=== PATIENT | female | born 1955 | race Caucasian/White ===

== ENCOUNTER → 2019-09-02 | Outpatient (CLI) | payer BC ==
[2019-09-02 14:39] VITALS: BP 158/79; PULSE 85; RESP 16; TEMP 98
--- NOTE | 2019-09-02 14:52 | P.GSHP ---
History of Present Illness H&P Date: 09/02/19 Chief Complaint: abnormal bilateral breast ultrasound Annie is a 64-year-old white female who presents for breast evaluation. She had bilateral mammogram performed in April 2019. This revealed bilateral dense breasts and bilateral ultrasound was recommended. Bilateral ultrasound she was noted to have lesions in both breasts for which core biopsy was recommended. There was a 1.5 cm lesion in the right breast and a 0.6 cm lesion in the left breast. These were considered BIRADS 4 and bilateral ultrasound core biopsy recommended. The patient herself does not feel any lumps masses or nodules in her breast. She has had no history of recent trauma or infection the breast. She had a right breast aspiration of a cyst in April 2016 and this was consistent with fibrocystic breast changes. Family History: dad: colon cancer sister: endometrial cancer maternal grandmother: stomach cancer Hormonal history: Menarche: 16 adopted 7, breast fed: yes, age at first : 26 menopasue: 44 BCP: 1 year Hormones: progesterone for three months, thickening of endometrial wall Surgical History: 1. 2. root canal Medical History: endometrial thickening HTN obesity Social History: amoke: none alcohol: none drugs: none - Constitutional Constitutional: Denies chills, Denies fever - EENT Eyes: denies blurred vision, denies pain Ears: left: decreased hearing, deny: tinnitus Ears, nose, mouth and throat: Denies headache, Denies sore throat - Breasts Breasts: bilateral: as per HPI - Cardiovascular Cardiovascular: Reports high blood pressure - Respiratory Respiratory: Denies cough, Denies 7 - Gastrointestinal Gastrointestinal: Denies abdominal pain, Denies diarrhea, Denies nausea, Denies vomiting - Genitourinary (Female) Genitourinary: Denies dysuria, Denies hematuria - Menstruation Comment: vaginal spotting and patient was noted have endometrial thickening was recently started on progesterone Menstruation: Reports postmenopausal - Musculoskeletal Musculoskeletal: Denies myalgias - Integumentary Integumentary: Denies pruritus, Denies rash - Neurological Neurological: Denies numbness, Denies weakness - Psychiatric Psychiatric: Denies anxiety, Denies depression - Endocrine Endocrine: Denies fatigue, Denies weight change - Hematologic/Lymphatic Comment: none - Allergic/Immunologic Allergic/Immunologic: Reports as per HPI Medications and Allergies Home Medications Medication Instructions Recorded Confirmed Type Cholecalciferol [Vitamin D3 (25 2,000 unit PO DAILY 08/26/19 09/02/19 History Mcg = 1000 Iu)] L.acidoph,Paracasei, B.lactis 1 each PO DAILY 08/26/19 09/02/19 History [Probiotic] Losartan/Hydrochlorothiazide 1 tab PO HS 08/26/19 09/02/19 History [Losartan-Hctz 100-25 mg Tab] Progesterone, Micronized 10 mg PO DAILY 08/26/19 09/02/19 History [Progesterone] Red Yeast Rice 1,200 mg PO DAILY 08/26/19 09/02/19 History Allergies Allergy/AdvReac Type Severity Reaction Status Date / Time No Known Allergies Allergy Verified 09/02/19 14:23 Surgical - Exam BMI 40.5 - General no distress, obese - Eyes normal ocular movement, no icteric - ENT no hearing loss, no congestion - Neck no masses, trachea midline - Respiratory normal expansion, normal respiratory effort, clear to auscultation - Cardiovascular Rhythm: regular Heart Sounds: normal: S1, S2 - Abdomen Abdomen: soft, non tender, no guarding, no rigid, no rebound - Integumentary normal turgor - Neurologic no disoriented, no combative - Musculoskeletal normal gait, normal posture - Psychiatric oriented to time, oriented to person, oriented to place, speech is normal, memory intact Breast exam: BRA 40B inspection: No skin lesions of concern, no nipple inversion Palpation: Right breast: Multi-positional exam fibrocystic breast changes no dominant masses or nodules of concern Right axilla: No adenopathy of concern Left breast: Multiple positional exam fibrocystic changes, no dominant masses or nodules of concern Left axilla: No adenopathy of concern Results Mammogram and ultrasound report reviewed Assessment and Plan Assessment: Impression: 1. Radiographic abnormality bilateral breast 2. Hypertension 3. BMI 40.5 4. Wall thickening/spotting/patient on progesterone Plan: 1. Bilateral ultrasound-guided core biopsies 2. Patient presently on Premarin we'll stop this until results of core biopsies come back 3. Follow with medical doctor regarding hypertension and elevated BMI CC: DR. Griffin., Dr. Green We have discussed ultrasound guided core biopsy. Risks and benefits including bleeding and infection or inability to adequately sampled the area of concern. The patient understands and wishes to proceed. Additionally we've discussed the fact that she is on Premarin and until we get the results of the core biopsy back and would recommend stopping the Premarin. encounter 40 minutes, > 50% of time in planning and counselling Time with Patient: Greater than 30
== END | disposition home or self-care (01) ==
LOC: WWCWWP 13:54
PROVIDERS: ATTEND Surgery
DX: Z53.9 Procedure and treatment not carried out, unspecified reason (principal)

== ENCOUNTER → 2019-09-10 | Day surgery (SDC) | payer BC ==
[2019-09-10 08:24] VITALS: RESP 16
[2019-09-10 10:00] VITALS: BP 155/79; PULSE 73; TEMP 97.6
--- NOTE | 2019-09-10 10:53 | USB ---
EXAMINATION TYPE: US biopsy breast VAD LT DATE OF EXAM: 09/10/2019 CLINICAL HISTORY: R92.8 ABN MAMMOGRAM. TECHNIQUE: Ultrasound guided core biopsy of left 7:00 breast. COMPARISON: NONE FINDINGS: The procedure of ultrasound guided core biopsy was explained to the patient. Benefits, alternatives, and risks were discussed. An informed consent was then obtained. The patient was placed in supine positioning for imaging and for the procedure. The overlying skin was prepped and draped in usual sterile fashion. Lidocaine buffered with bicarbonate was used as anesthetic into the skin and subcutaneous tissue up to area of concern in the left 7:00 breast. Under ultrasound guidance, a 12-gauge vacuum assisted biopsy gun device was used to obtain one core sample was obtained and then the lesion was no longer visualized. Following this, a biopsy clip was left in lesion. The patient tolerated the procedure well without any immediate complication. The patient was kept in the radiology department for short stay after the procedure and then discharged home in stable condition. IMPRESSION: Successful, uncomplicated ultrasound guided core biopsy of area of concern in the left 7:00 breast, full pathology results to follow. Pathology Results: Benign LEFT BREAST, SEVEN OCLOCK, ULTRASOUND GUIDED CORE BIOPSY: Fibrocystic changes including cyst with fibrosis, apocrine metaplasia, adenosis and microcalcifications. Recommendation Follow up ultasound of the left breast in 6 months. GIOVANNYD
--- NOTE | 2019-09-10 10:55 | USB ---
EXAMINATION TYPE: US breast aspiration single RT DATE OF EXAM: 09/10/2019 COMPARISON: NONE CLINICAL HISTORY: R92.8 ABN MAMMOGRAM. Informed consent was obtained and all the patient's questions were answered. Cystic lesion at the right 1:00 position was localized sonographically. The standard sterile technique was utilized as well as appropriate local anesthesia with 1% lidocaine. 18-gauge needle was introduced into the lesion and a 0.5 mL of thick white aspirate was obtained. Clip marker was deployed at the site of aspiration. Aspirate was sent to cytology for evaluation. The patient left the department in stable condition. IMPRESSION: Successful cyst aspiration right 1:00 position. Cytology pending. Pathology Results: Benign RIGHT BREAST, ONE O'CLOCK, ASPIRATE: Clusters of bland apocrine lining cells and background degenerated cellular material, consistent with a benign apocrine cyst/cyst contents. Recommendation Follow up ultrasound of the right breast in 6 months. PETER
== END ==
LOC: RADUSWWP 08:00
PROVIDERS: ATTEND Surgery
DX: N60.01 Solitary cyst of right breast (principal); N60.82 Other benign mammary dysplasias of left breast; N60.12 Diffuse cystic mastopathy of left breast; R92.8 Other abnormal and inconclusive findings on diagnostic imaging of breast
CPT/HCPCS: 88108; 88305; 19000; 19083; A4648; J2001; 76942

== ENCOUNTER → 2020-03-18 | Outpatient (CLI) | payer BC ==
--- NOTE | 2020-03-22 10:00 | MM ---
Reason for exam: follow-up at short interval from prior study. Last mammogram was performed 11 months ago. History: Patient is postmenopausal. Benign US breast aspiration single RT of the right breast, September 10, 2019. Benign US biopsy breast VAD LT of the left breast, September 10, 2019. Benign US breast aspiration single RT of the right breast, April 24, 2016. Took estrogen for 6 months beginning at age 44. Took progesterone for 6 months beginning at age 44. Took other hormone for 3 months beginning at age 65. Physical Findings: Nurse did not find any significant physical abnormalities on exam. MG Diagnostic Mammo w CAD JACKIE Bilateral CC and MLO view(s) were taken. Prior study comparison: April 28, 2019, mammogram. Finding: There is a typically benign 7 mm equal density (isodense), circumscribed round mass located 9 cm from the nipple in the left breast. Previous mammotome biopsy in the right and left breast. No significant changes in finding since April 28, 2019. These results were verbally communicated with the patient and result sheet given to the patient on 03/18/20. ASSESSMENT: Benign, BI-RAD 2 RECOMMENDATION: Routine screening mammogram of both breasts in 1 year.
--- NOTE | 2020-03-22 10:02 | USB ---
Reason for exam: follow-up at short interval from prior study. History: Patient is postmenopausal. Benign US breast aspiration single RT of the right breast, September 10, 2019. Benign US biopsy breast VAD LT of the left breast, September 10, 2019. Benign US breast aspiration single RT of the right breast, April 24, 2016. Took estrogen for 6 months beginning at age 44. Took progesterone for 6 months beginning at age 44. Took other hormone for 3 months beginning at age 65. US Breast Limited BILAT Right limited breast ultrasound including focal area of concern, retroareolar and axilla demonstrates a 0.4 x 0.4 x 0.2cm oval, cystic lesion at 12 o'clock, a 0.5 x 0.4 x 0.4cm oval, cystic lesion at 2 o'clock and a 1.3 x 0.7 x 0.8cm oval, lymph nodes at the axilla. Left limited breast ultrasound including focal area of concern, retroareolar and axilla demonstrates a 0.3 x 0.3 x 0.3cm oval, cystic lesion at 6 o'clock, a 0.6 x 0.7 x 0.4cm oval, cystic lesion at 7 o'clock and a 0.4 x 0.4 x 0.3cm oval, cystic lesion at 9 o'clock. These results were verbally communicated with the patient and result sheet given to the patient on 03/18/20. ASSESSMENT: Benign, BI-RAD 2 RECOMMENDATION: Routine screening mammogram of both breasts in 1 year.
== END | disposition home or self-care (01) ==
LOC: RADMAMWWP 14:19
PROVIDERS: ATTEND Surgery
DX: R92.8 Other abnormal and inconclusive findings on diagnostic imaging of breast (principal)
CPT/HCPCS: 77066

== ENCOUNTER 2020-04-23 06:55 | Day surgery (SDC) | payer BC ==
[2020-04-22 08:48] VITALS: BMI 40.5
[~2020-04-23 06:55] MED LIST: LACTATED RINGERS 1,000 ML IV SCH; LIDOCAINE 1% (10MG/ML) FOR IV START INTRADERMA PRN
[2020-04-23 07:25] VITALS: RESP 16; TEMP 97.5
[2020-04-23 07:25] LABS: Glucose,Whole Blood 109 mg/dL (75-99)
[2020-04-23] MEDS ORDERED: PROPOFOL 10 MG/ML 20 ML VIAL IV ONE (07:32)
--- NOTE | 2020-04-23 07:48 | P.PCN ---
Date of Procedure: 04/23/20 Procedure(s) Performed: BRIEF HISTORY: Patient is a 65-year-old pleasant female scheduled for an elective colonoscopy as a part of evaluation of prior history of colon polyps and family history of colon cancer. Father was diagnosed with colon cancer at age 70. PROCEDURE PERFORMED: Colonoscopy with biopsy and Endo Clip placement. PREOPERATIVE DIAGNOSIS: History of colon polyps/family history of colon cancer. IV sedation per Anesthesia. PROCEDURE: After informed consent was obtained, the patient, was brought into the endoscopy unit. IV sedation was administered by Anesthesia under continuous monitoring. Digital rectal examination was normal. Initially the Olympus CF-160 flexible video colonoscope was then inserted in the rectum, gradually advanced into the cecum without any difficulty. Careful examination was performed as the scope was gradually being withdrawn. Ileocecal valve and the appendiceal orifice were visualized and appeared normal. Prep was excellent. Mucosa of the cecum, ascending colon, transverse colon, appeared normal. In the descending colon there was a 3 mm polyp that was removed by biopsy. Immediately there was brisk bleeding identified at the site of biopsy and hence an Endo Clip was placed and adequate hemostasis was achieved. Rest of the descending colon, sigmoid colon, and rectum appeared normal. Scattered left sided diverticulosis seen. Retroflexion was performed in the rectum and no lesions were seen. The patient tolerated the procedure well. IMPRESSION: 3 mm polyp in the descending colon status post biopsy followed by bleeding status post Endo Clip placement for hemostasis Scattered sigmoid diverticulosis RECOMMENDATIONS: Findings of this examination were discussed with the patient as well as a family.. She was advised to follow with the biopsy results. She was advised to have a repeat colonoscopy in 5 years because of the family family history of colon cancer
[2020-04-23] MEDS ORDERED: IV FLUID CONTINUATION 800 ML IV ONE (07:49)
[2020-04-23 08:06] VITALS: BP 168/75; PULSE 85
== END 2020-04-23 08:46 | disposition home or self-care (01) ==
LOC: ORWHC2ENDO 06:55
PROVIDERS: ATTEND Internal Medicine Gastroenterology
DX: Z12.11 Encounter for screening for malignant neoplasm of colon (principal); D12.4 Benign neoplasm of descending colon; K57.30 Diverticulosis of large intestine without perforation or abscess without bleeding; Z80.0 Family history of malignant neoplasm of digestive organs; E11.9 Type 2 diabetes mellitus without complications; Z86.010 Personal history of colon polyps; Z98.891 History of uterine scar from previous surgery; I10 Essential (primary) hypertension; Z98.890 Other specified postprocedural states; Z79.84 Long term (current) use of oral hypoglycemic drugs; Z79.899 Other long term (current) drug therapy
CPT/HCPCS: 88305; 45380; J2704; 45382

== ENCOUNTER → 2021-05-26 | Outpatient (CLI) | payer MEDICARE ==
--- NOTE | 2021-05-27 11:00 | MM ---
Reason for exam: screening (asymptomatic). Last mammogram was performed 1 year and 2 months ago. History: Patient is postmenopausal. Benign US breast aspiration single RT of the right breast, September 10, 2019. Benign US biopsy breast VAD LT of the left breast, September 10, 2019. Benign US breast aspiration single RT of the right breast, April 24, 2016. Took estrogen for 6 months beginning at age 44. Took progesterone for 6 months beginning at age 44. Took other hormone for 3 months beginning at age 65. Physical Findings: A clinical breast exam by your physician is recommended on an annual basis and results should be correlated with mammographic findings. MG 3D Screening Mammo W/Cad Bilateral CC and MLO view(s) were taken. Prior study comparison: March 18, 2020, bilateral MG diagnostic mammo w CAD JACKIE. April 28, 2019, mammogram. The breast tissue is heterogeneously dense. This may lower the sensitivity of mammography. Finding #1: There is a 7 mm obscured round mass in the middle posterior position of the right breast. There is a 7 mm mass in the middle central position of the left breast 4cm from the nipple. Finding #2: There are typically benign round calcifications in both breasts. Previous mammotome biopsy in the right and left breast. ASSESSMENT: Incomplete: need additional imaging evaluation, BI-RAD 0 RECOMMENDATION: Ultrasound of both breasts. [facility] will attempt to contact patient to return for ultrasound.
== END | disposition home or self-care (01) ==
LOC: RADMAMWWP 09:40
PROVIDERS: ATTEND Family Medicine
DX: Z12.31 Encounter for screening mammogram for malignant neoplasm of breast (principal); Z78.0 Asymptomatic menopausal state
CPT/HCPCS: 77063; 77067

== ENCOUNTER → 2021-06-01 | Outpatient (CLI) | payer MEDICARE ==
--- NOTE | 2021-06-01 10:44 | USB ---
Reason for exam: additional evaluation requested from abnormal screening. History: Patient is postmenopausal. Benign US breast aspiration single RT of the right breast, September 10, 2019. Benign US biopsy breast VAD LT of the left breast, September 10, 2019. Benign US breast aspiration single RT of the right breast, April 24, 2016. Took estrogen for 6 months beginning at age 44. Took progesterone for 6 months beginning at age 44. Took other hormone for 3 months beginning at age 65. Physical Findings: Nurse did not find any significant physical abnormalities on exam. US Breast Workup Limited JACKIE Right limited breast ultrasound including focal area of concern, retroareolar and axilla demonstrates a 0.5 x 0.8 x 0.3cm oval, mixed lesion at 1 o'clock, 6 month follow up recommended, a 0.4 x 0.4 x 0.3cm oval, mixed lesion at 1 o'clock, 6 month follow up recommended, a 0.3 x 0.5 x 0.2cm oval, mixed lesion at 4 o'clock, 6 month follow up recommended, a 0.6 x 0.4 x 0.3cm oval, cystic lesion at 6 o'clock, a 0.8 x 0.5 x 0.4cm oval, cystic cluster at 6 o'clock, ducts at the posterior nipple and a 1.4 x 0.9 x 1.3cm axilla lymph node. Left limited breast ultrasound including focal area of concern, retroareolar and axilla demonstrates a 0.4 x 0.5 x 0.5cm hypoechoic lesion at 1 o'clock, 6 month follow up recommended, a 0.7 x 0.6 x 0.5cm oval, cystic lesion at 2 o'clock, a 0.3 x 0.4 x 0.3cm oval, mixed lesion at 2 o'clock, a 0.8 x 0.9 x 0.3cm oval, mixed lesion at 2 o'clock, 6 month follow up recommended, a 0.7 x 0.9 x 0.5cm oval, mixed lesion at 3 o'clock, 6 month follow up recommended, a 0.6 x 0.6 x 0.6cm oval, cystic lesion at 4 o'clock and a 1.9 x 1.2 x 0.6cm axilla lymph node. Scanned right medial breast and left lateral breast. These results were verbally communicated with the patient and result sheet given to the patient on 06/01/21. ASSESSMENT: Probably benign, BI-RAD 3 RECOMMENDATION: Ultrasound of both breasts in 6 months.
== END | disposition home or self-care (01) ==
LOC: RADUSWWP 08:16
PROVIDERS: ATTEND Family Medicine
DX: N64.89 Other specified disorders of breast (principal)

== ENCOUNTER → 2022-08-29 | Outpatient (CLI) | payer MEDICARE ==
--- NOTE | 2022-08-29 10:50 | MM ---
Reason for Exam: Follow-up at short interval from prior study. Last mammogram was performed 1 year(s) and 3 month(s) ago. Patient History: Menarche at age 16. First Full-Term at age 26. Postmenopausal. Patient has history of breast feeding. Estrogen for 6 months from age 44 until age 44. Progesterone for 6 months from age 44 until age 44. 09/10/2019, Benign Core Biopsy on the left side. 09/10/2019, Benign Cyst Aspiration on the right side. 04/24/2016, Benign Cyst Aspiration on the right side. Risk Values: Radha 5 year model risk: 2.0%. NCI Lifetime model risk: 7.2%. Prior Study Comparison: 04/28/2019 Screening Mammogram, [facility]. 03/18/2020 Bilateral Diagnostic Mammogram, [facility]. 03/18/2020 Bilateral Diagnostic Ultrasound, [facility]. 05/26/2021 Bilateral Screening Mammogram, [facility]. 06/01/2021 Bilateral Diagnostic Ultrasound, [facility]. Tissue Density: The breast tissue is heterogeneously dense. This may lower the sensitivity of mammography. Findings: Analyzed By CAD. Pattern appears symmetrical and stable. No significant interval change is evident. Benign-appearing calcifications are scattered bilaterally. Bilateral core markers are evident. No significant interval change. No suspicious spiculated or lobular masses, cluster microcalcifications, architectural distortion, or other secondary signs of malignancy are radiographically apparent. Overall Assessment: Benign, BI-RAD 2 Management: Diagnostic Breast Ultrasound of both breasts. A clinical breast exam by your physician is recommended on an annual basis and results should be correlated with mammographic findings. This exam should not preclude additional follow-up of suspicious palpable abnormalities. Results were given to the patient verbally at the time of exam. Electronically signed and approved by: Rasta Garcia D.O. Radiologis
--- NOTE | 2022-08-29 11:06 | USB ---
Reason for Exam: Additional evaluation requested from prior study. Patient History: Menarche at age 16. First Full-Term at age 26. Postmenopausal. Patient has history of breast feeding. Estrogen for 6 months from age 44 until age 44. Progesterone for 6 months from age 44 until age 44. 09/10/2019, Benign Core Biopsy on the left side. 09/10/2019, Benign Cyst Aspiration on the right side. 04/24/2016, Benign Cyst Aspiration on the right side. Risk Values: Radha 5 year model risk: 2.0%. NCI Lifetime model risk: 7.2%. Technique: Method: Targeted. Prior Study Comparison: 04/28/2019 Screening Mammogram, Unknown. 03/18/2020 Bilateral Diagnostic Mammogram, [facility]. 05/26/2021 Bilateral Screening Mammogram, [facility]. Findings: The lateral section of the breast of the left breast, the medial section of the breast of the right breast, the axilla of both breasts and the retroareolar of both breasts were scanned. There are multiple scattered cystlike structures to the bilateral breasts. Majority is appears simple. Slightly more complex cyst with some minimal internal debris with good through transmission may be at 3:00 left breast position. Stable solid subcentimeter lesions within the left breast. No suspicious shadowing structures or solid lesions are evident. Overall Assessment: Benign, BI-RAD 2 Management: Screening Mammogram of both breasts in 1 year. A clinical breast exam by your physician is recommended on an annual basis and results should be correlated with mammographic findings. This exam should not preclude additional follow-up of suspicious palpable abnormalities. Results were given to the patient verbally at the time of exam. Electronically signed and approved by: Rasta Garcia D.O. Radiologis
--- NOTE | 2022-08-29 13:20 | BD ---
EXAMINATION TYPE: Axial Bone Density DATE OF EXAM: 08/29/2022 CLINICAL HISTORY: 67 year old Female. ICD-10 CODE: Z78.0 Height: 64 Weight: 246.6 FRAX RISK QUESTIONS: Alcohol (3 or more units per day): no Family History (Parent hip fracture): no Glucocorticoids (More than 3mos): no (Ex: prednisone, prednisolone, methylprednisolone, dexamethasone, and hydrocortisone). History of Fracture in Adulthood: no Secondary Osteoporosis: 1. Type 1 Diabetes: no 2. Hyperthyroidism: no 3. Menopause before 45: yes 4. Malnutrition: no 5. Chronic liver disease: no Rheumatoid Arthritis: no Current Tobacco Use: no RISK FACTORS HISTORY OF: Surgery to Spine/Hip(right/left)/Wrist (right/left): no Family History of Osteoporosis: no Active: no Diet low in dairy products/other sources of calcium: no Postmenopausal woman: yes Lost more than 2 inches in height since high school: no MEDICATIONS: Jardiance Additional History: EXAM MEASUREMENTS: Bone mineral densitometry was performed using the [employer] System. Bone mineral density as measured about the Lumbar spine is: ----- L1-L4(G/cm2): 1.279 T Score Values are as follows: ----- L1: 0.2 ----- L2: -0.3 ----- L3: 1.3 ----- L4: 1.7 ----- L1-L4: 0.8 Z Score Values are as follows: ----- L1: 0.7 ----- L2: 0.2 ----- L3: 1.8 ----- L4: 2.1 ----- L1-L4: 1.3 Bone mineral density : baseline Bone mineral density about the R hip (g/cm2): 1.197 Bone mineral density about the L hip (g/cm2): 1.246 T Score values are as follows: -----R Neck: -0.1 -----L Neck: 0.6 -----R Total: 1.5 -----L Total: 1.9 Z Score values are as follows: -----R Neck: 0.7 -----L Neck: 1.4 -----R Total: 1.9 -----L Total: 2.3 Bone mineral density : baseline FRAX%s: The graph provided illustrates a 6.1% chance for a major osteoporotic fx and a 0.2% chance fo r the hips probability for fx in 10 years time. IMPRESSION: Normal (Values between +1 and -1 indicate normal bone mass). Consider repeating this study in 5 year s or sooner if there is some new clinical indication. NOTE: T-SCORE=SD OF THE YOUNG ADULT MEAN.
== END | disposition home or self-care (01) ==
LOC: RADBDWWP 09:12
PROVIDERS: ATTEND Family Medicine
DX: R92.8 Other abnormal and inconclusive findings on diagnostic imaging of breast (principal); N60.01 Solitary cyst of right breast; N60.02 Solitary cyst of left breast; Z78.0 Asymptomatic menopausal state
CPT/HCPCS: 77080; 77066; 76642; G0279; 77062

== ENCOUNTER → 2023-08-31 | Outpatient (CLI) | payer MEDICARE ==
--- NOTE | 2023-09-05 09:50 | MM ---
Reason for Exam: Screening (asymptomatic). Last screening mammogram was performed 12 month(s) ago. Patient History: Menarche at age 16. First Full-Term at age 26. Postmenopausal. Patient has history of breast feeding. Estrogen for 6 months from age 44 until age 44. Progesterone for 6 months from age 44 until age 44. 09/10/2019, Benign Core Biopsy on the left side. 09/10/2019, Benign Cyst Aspiration on the right side. 04/24/2016, Benign Cyst Aspiration on the right side. Risk Values: Radha 5 year model risk: 2.0%. NCI Lifetime model risk: 6.9%. Prior Study Comparison: 03/18/2020 Bilateral Diagnostic Mammogram, [facility]. 05/26/2021 Bilateral Screening Mammogram, [facility]. 08/29/2022 Bilateral MG 3D diag mammo w/cad JACKIE, [facility]. Tissue Density: The breasts are heterogeneously dense, which may obscure small masses. Findings: Analyzed By CAD. There is no suspicious group of microcalcifications or new suspicious mass in either breast. Benign appearing calcifications. Surgical clips are noted from prior biopsy. Subcentimeter well-circumscribed chronic nodularity lower margin right breast. Overall Assessment: Benign, BI-RAD 2 Management: Screening Mammogram of both breasts in 1 year. . Patient should continue monthly self-breast exams. A clinical breast exam by your physician is recommended on an annual basis. This exam should not preclude additional follow-up of suspicious palpable abnormalities. Note on Radha scores and lifetime risk: 1. A Radha score greater than 3% is considered moderate risk. If this is the case, consider specialist referral to assess eligibility for a risk reducing agent. 2. If overall lifetime risk for the development of breast cancer is 20% or higher, the patient may qualify for future screening with alternating mammogram and breast MRI. Electronically signed and approved by: Jovanny Pabon M.D. Radiologis
== END | disposition home or self-care (01) ==
LOC: RADMAMWWP 10:34
PROVIDERS: ATTEND Family Medicine
DX: Z12.31 Encounter for screening mammogram for malignant neoplasm of breast (principal); Z78.0 Asymptomatic menopausal state
CPT/HCPCS: 77063; 77067

== ENCOUNTER → 2024-09-15 | Outpatient (CLI) | payer MEDICARE ==
--- NOTE | 2024-09-15 16:49 | MM ---
Reason for Exam: Screening (asymptomatic). Last mammogram was performed 1 year(s) and 1 month(s) ago. Patient History: Menarche at age 16. First Full-Term at age 26. Postmenopausal. Patient has history of breast feeding. Estrogen for 6 months from age 44 until age 44. Progesterone for 6 months from age 44 until age 44. 09/10/2019, Benign Core Biopsy on the left side. 09/10/2019, Benign Cyst Aspiration on the right side. 04/24/2016, Benign Cyst Aspiration on the right side. Risk Values: Radha 5 year model risk: 2.0%. NCI Lifetime model risk: 6.6%. Prior Study Comparison: 05/26/2021 Bilateral Screening Mammogram, [facility]. 08/29/2022 Bilateral MG 3D diag mammo w/cad JACKIE, [facility]. 08/31/2023 Bilateral MG 3D screening mammo w/cad, [facility]. Tissue Density: The breasts are heterogeneously dense, which may obscure small masses. Findings: Analyzed By CAD. Areas of bilateral asymmetric density are unchanged. A microclip on either side from prior biopsies. A few scattered benign round and punctate calcifications redemonstrated. There is no suspicious group of microcalcifications or new suspicious mass in either breast. Overall Assessment: Benign, BI-RAD 2 Management: Screening Mammogram of both breasts in 1 year. Patient should continue monthly self-breast exams. A clinical breast exam by your physician is recommended on an annual basis. This exam should not preclude additional follow-up of suspicious palpable abnormalities. Note on Radha scores and lifetime risk: 1. A Radha score greater than 3% is considered moderate risk. If this is the case, consider specialist referral to assess eligibility for a risk reducing agent. 2. If overall lifetime risk for the development of breast cancer is 20% or higher, the patient may qualify for future screening with alternating mammogram and breast MRI. [facility], , 09/15/2024 4:46 PM. Electronically signed and approved by: Nadia Anaya M.D. Radiologist
== END | disposition home or self-care (01) ==
LOC: RADMAMWWP 14:14
PROVIDERS: ATTEND Family Medicine
DX: Z12.31 Encounter for screening mammogram for malignant neoplasm of breast (principal); R92.333 Mammographic heterogeneous density, bilateral breasts; Z78.0 Asymptomatic menopausal state
CPT/HCPCS: 77063; 77067